=== PATIENT | female | born 1980 | race Caucasian/White ===

== ENCOUNTER → 2020-07-12 | Outpatient (CLI) | payer OTHER ==
--- NOTE | 2020-07-12 14:59 | Diagnostic Imaging Report ---
INDICATION: Routine screening. COMPARISON: No prior mammograms are available for comparison. This is a baseline study. TECHNIQUE: 2D and 3D bilateral screening mammography was performed with CAD. FINDINGS: Scattered fibroglandular densities are identified bilaterally. No mass or malignant appearing microcalcifications are seen. The axillae are unremarkable. IMPRESSION: No mammographic features suspicious for malignancy are identified. ACR BI-RADS Category 1: Negative. Result letter will be mailed to the patient. Note: At least 10% of breast cancer is not imaged by mammography. Dictated by: Dictated on workstation # [id number]
== END ==
LOC: RAD 09:30
PROVIDERS: ATTEND Obstetrics & Gynecology
DX: Z12.31 Encounter for screening mammogram for malignant neoplasm of breast (principal)
CPT/HCPCS: 77063; 77067

== ENCOUNTER 2021-09-08 20:53 | Emergency (ER) | payer OTHER ==
[~2021-09-08] VITALS: Ht 165 cm; Wt 120.0 kg
[2021-09-08] MEDS ORDERED: NS IV 1000 ML 1,000 ML IV STA (21:06)
--- NOTE | 2021-09-08 21:10 | ED Syncope ---
General Chief Complaint: Dizziness/Syncope Stated Complaint: SYNCOPE Source of Information: Patient, EMS History of Present Illness Date Seen by Provider: Sep 08, 2021 Time Seen by Provider: 20:53 Initial Comments 41-year-old female presenting by EMS from [facility] where she had been having supper and some drinks with friends. She had a near syncopal episode and almost passed out. She had low blood pressure for EMS when they arrived. They gave her IV fluids which helped her feel better. Her chest does not hurt. She denies abdominal pain. Her nose has some mild nasal congestion. She denies fever or chills. Timing/Prior Episodes: No Prior History Symptoms Prior to Episode: Blurred Vision, Confusion, Lightheadedness, Nausea Precipitating Factors: None Loss of Consciousness: No Loss of Consciousness Current Symptoms: Back to Normal; No Blurred Vision, No Chest Pain, No Diaphoresis, No Dizziness, No Headache, No Injury, No Lightheadedness, No Loss of Bladder Control, No Loss of Bowel Control, No Nausea, No Pale, No Shallow/Rapid Breathing, No Weak/Absent Pulse, No Weakness Allergies and Home Medications Allergies Coded Allergies: No Known Drug Allergies (Unverified , 09/08/21) Patient Home Medication List Home Medication List Reviewed: Yes Ciprofloxacin HCl (Ciprofloxacin HCl) 500 Mg Tablet, 500 MG PO BID Prescribed by: JAMILAH PERERA on 09/08/212223 Review of Systems Constitutional: No chills; diaphoresis; No fever EENTM: No ear discharge, No hearing loss, No ear pain, No vision loss Respiratory: no symptoms reported Cardiovascular: palpitations Gastrointestinal: no symptoms reported Genitourinary: no symptoms reported Musculoskeletal: no symptoms reported Skin: no symptoms reported, change in hair/nails Psychiatric/Neurological: No Symptoms Reported Past Bzhvqre-Ssekzw-Scyctg Hx Patient Social History Tobacco Use?: No Use of E-Cig and/or Vaping dev: No Substance use?: No Physical Exam Vital Signs Vital Signs - First Documented 09/08/21 20:55 Temp 36.2 Pulse 81 Resp 18 B/P (MAP) 132/46 (74) Pulse Ox 94 O2 Delivery Room Air Capillary Refill : Height, Weight, BMI Height: '" Weight: lbs. oz. kg; BMI Method: General Appearance: No Apparent Distress, WD/WN HEENT: PERRL/EOMI, Normal ENT Inspection, Pharynx Normal Neck: Full Range of Motion, Normal Inspection, Non Tender, Supple Cardiovascular: Regular Rate, Rhythm, Normal Peripheral Pulses Respiratory: Chest Non Tender, Lungs Clear, Normal Breath Sounds, No Accessory Muscle Use, No Respiratory Distress Gastrointestinal: Normal Bowel Sounds, No Pulsatile Mass, Non Tender, Soft Back: No CVA Tenderness Extremities: Normal Capillary Refill, Normal Inspection, No Pedal Edema Neurologic/Psychiatric: Alert, No Motor/Sensory Deficits Cranial Nerves: Normal Hearing, Normal Speech, PERRL Motor/Sensory: No Motor Deficit, No Sensory Deficit, No Pronator Drift Skin: Normal Color, Warm/Dry Progress/Results/Core Measures Results/Orders Lab Results Laboratory Tests Test 09/08/21 21:05 09/08/21 21:10 09/08/21 21:32 Range/Units White Blood Count 11.2 H 4.3-11.0 10^3/uL Red Blood Count 4.06 3.80-5.11 10^6/uL Hemoglobin 12.5 11.5-16.0 g/dL Hematocrit 37 35-52 % Mean Corpuscular Volume 92 80-99 fL Mean Corpuscular Hemoglobin 31 25-34 pg Mean Corpuscular Hemoglobin Concent 33 32-36 g/dL Red Cell Distribution Width 13.4 10.0-14.5 % Platelet Count 222 130-400 10^3/uL Mean Platelet Volume 12.0 9.0-12.2 fL Immature Granulocyte % (Auto) 0 % Neutrophils (%) (Auto) 49 42-75 % Lymphocytes (%) (Auto) 42 12-44 % Monocytes (%) (Auto) 5 0-12 % Eosinophils (%) (Auto) 4 0-10 % Basophils (%) (Auto) 1 0-10 % Neutrophils # (Auto) 5.4 1.8-7.8 10^3/uL Lymphocytes # (Auto) 4.7 H 1.0-4.0 10^3/uL Monocytes # (Auto) 0.5 0.0-1.0 10^3/uL Eosinophils # (Auto) 0.4 H 0.0-0.3 10^3/uL Basophils # (Auto) 0.1 0.0-0.1 10^3/uL Immature Granulocyte # (Auto) 0.0 0.0-0.1 10^3/uL Prothrombin Time 14.2 12.2-14.7 SEC INR Comment 1.1 0.8-1.4 Activated Partial Thromboplast Time 29 24-35 SEC Sodium Level 134 L 135-145 MMOL/L Potassium Level 3.7 3.6-5.0 MMOL/L Chloride Level 103 98-107 MMOL/L Carbon Dioxide Level 20 L 21-32 MMOL/L Anion Gap 11 5-14 MMOL/L Blood Urea Nitrogen 12 7-18 MG/DL Creatinine 0.90 0.60-1.30 MG/DL Estimat Glomerular Filtration Rate 81 BUN/Creatinine Ratio 13 Glucose Level 152 H 70-105 MG/DL Calcium Level 8.1 L 8.5-10.1 MG/DL Corrected Calcium 8.5 8.5-10.1 MG/DL Magnesium Level 2.1 1.6-2.4 MG/DL Total Bilirubin 0.3 0.1-1.0 MG/DL Aspartate Amino Transf (AST/SGOT) 11 5-34 U/L Alanine Aminotransferase (ALT/SGPT) 5 0-55 U/L Alkaline Phosphatase 50 40-136 U/L Myoglobin < 21.0 10.0-92.0 NG/ML Troponin I < 0.30 <0.30 NG/ML Pro-B-Type Natriuretic Peptide 57.3 <75.0 PG/ML Total Protein 6.3 L 6.4-8.2 GM/DL Albumin 3.5 3.2-4.5 GM/DL Serum Alcohol < 10 <10 MG/DL Influenza Type A Antigen NEGATIVE NEGATIVE Influenza Type B Antigen NEGATIVE NEGATIVE Urine Color YELLOW Urine Clarity CLEAR Urine pH 6.0 5-9 Urine Specific [place] 1.020 1.016-1.022 Urine Protein NEGATIVE NEGATIVE Urine Glucose (UA) NEGATIVE NEGATIVE Urine Ketones NEGATIVE NEGATIVE Urine Nitrite NEGATIVE NEGATIVE Urine Bilirubin NEGATIVE NEGATIVE Urine Urobilinogen 0.2 < = 1.0 MG/DL Urine Leukocyte Esterase 1+ H NEGATIVE Urine RBC (Auto) NEGATIVE NEGATIVE Urine RBC NONE /HPF Urine WBC 5-10 H /HPF Urine Squamous Epithelial Cells 10-25 H /HPF Urine Crystals NONE /LPF Urine Bacteria MODERATE H /HPF Urine Casts PRESENT /LPF Urine Hyaline Casts 5-10 H /LPF Urine Mucus LARGE H /LPF Urine Yeast FEW H /HPF Urine Culture Indicated YES My Orders Orders - JAMILAH PERERA MD Cbc With Automated Diff (09/08/21 21:06) Magnesium (09/08/21 21:06) Chest 1 View Ap/Pa Only (09/08/21 21:06) Ekg Tracing (09/08/21 21:06) Comprehensive Metabolic Panel (09/08/21 21:06) Myoglobin Serum (09/08/21 21:06) Protime With Inr (09/08/21 21:06) Partial Thromboplastin Time (09/08/21 21:06) O2 (09/08/21 21:06) Monitor-Rhythm Ecg Trace Only (09/08/21 21:06) Ed Iv/Invasive Line Start (09/08/21 21:06) Troponin I Fs (09/08/21 21:06) Probnp Fs (09/08/21 21:06) Ua Culture If Indicated (09/08/21 21:06) Alcohol (09/08/21 21:06) Coronavirus Sars-Cov-2 So 2019 (09/08/21 21:06) Influenza A & B Antigens (09/08/21 21:06) Orthostatic Vital Signs (Adult (09/08/21 21:06) Ns Iv 1000 Ml (Sodium Chloride 0.9%) (09/08/21 21:06) Urine Culture (09/08/21 21:32) Ceftriaxone 1 Gm Pre-Mix (Rocephin 1 Gm (09/08/21 22:20) Vital Signs/I&O 09/08/21 09/08/21 09/08/21 20:55 21:31 22:47 Temp 36.2 Pulse 81 77 78 79 73 Resp 18 15 B/P (MAP) 132/46 (74) 102/51 (68) 101/48 107/56 (73) 97/53 (68) Pulse Ox 94 98 O2 Delivery Room Air Room Air 09/09/21 00:00 Intake Total 300 ml Balance 300 ml Progress Progress Note #1: Progress Note Obtain basic labs and electrocardiogram. Monitor on cardiac engine monitor. The initial electrocardiogram does not show acute ST elevation or acute process. Progress Note #2: Progress Note Labs do not show any acute significant abnormality to account for her near syncope. Her urinalysis did show some dehydration and UTI. Will treat with antibiotic and continue fluids. Patient states that she is feeling better. She had orthostatics done and her blood pressure and heart rate did not fluctuate significantly. With patient feeling better will treat with antibiotics and counseled on follow-up and return precautions. Initial ECG Impression Date: Sep 08, 2021 Initial ECG Impression Time: 21:01 Initial ECG Rate: 75 Initial ECG Rhythm: Normal Sinus Initial ECG Comparisson: No Previous ECG Available Comment Normal sinus rhythm with a heart rate of [address] elevation. CA interval 161 ms. QT interval 406 ms with a QTc interval 454 ms. There is no prior tracing available for comparison. Departure Impression Primary Impression: Cystitis without hematuria Additional Impressions: Dehydration Syncope, near Person under investigation for COVID-19 Disposition: 01 HOME, SELF-CARE Condition: Improved Departure-Patient Inst. Decision time for Depature: 22:21 Referrals: [facility] [phone] call for follow up for continued problems Patient Instructions: Fainting, Adult ED, Urinary Tract Infection, Adult ED, Dehydration, Adult ED, COVID-19 ED Add. Discharge Instructions: Stay well-hydrated and drink plenty fluids. Finish the course of antibiotics to treat for urine infection. Follow-up through the clinic for continued concerns. You should isolate and quarantine until you have the results of the Covid swab. You will get a call within the next 24 to 48 hours with the results. All discharge instructions reviewed with patient and/or family. Voiced understanding. Scripts Ciprofloxacin HCl (Ciprofloxacin HCl) 500 Mg Tablet 500 MG PO BID for UTI for 7 Days, #14 TAB 0 Refills Prov: JAMILAH PERERA MD 09/08/21 JAMILAH PERERA MD Sep 08, 2021 21:10
[2021-09-08 21:13] LABS: BASOPHILS # (AUTO) 0.1 10^3/uL (0.0-0.1); BASOPHILS % (AUTO) 1 % (0-10); EOSINOPHILS # (AUTO) 0.4 10^3/uL (0.0-0.3); EOSINOPHILS % (AUTO) 4 % (0-10); HEMATOCRIT 37 % (35-52); HEMOGLOBIN 12.5 g/dL (11.5-16.0); LYMPHOCYTES # (AUTO) 4.7 10^3/uL (1.0-4.0); LYMPHOCYTES % (AUTO) 42 % (12-44); MEAN CORPUSCULAR HEMOGLOBIN 31 pg (25-34); MEAN CORPUSCULAR HGB CONC 33 g/dL (32-36); MEAN CORPUSCULAR VOLUME 92 fL (80-99); MONOCYTES # (AUTO) 0.5 10^3/uL (0.0-1.0); MONOCYTES % (AUTO) 5 % (0-12); NEUTROPHILS # (AUTO) 5.4 10^3/uL (1.8-7.8); NEUTROPHILS % (AUTO) 49 % (42-75); PLATELET COUNT 222 10^3/uL (130-400); WHITE BLOOD COUNT 11.2 10^3/uL (4.3-11.0)
[2021-09-08 21:22] LABS: INR 1.1 (0.8-1.4); PROTHROMBIN TIME PATIENT 14.2 SEC (12.2-14.7)
[2021-09-08 21:31] VITALS: BP_SYST 102; BP_SYST 107; BP_SYST 97; BP_DIAS 51; BP_DIAS 53; BP_DIAS 56
--- NOTE | 2021-09-08 21:33 | Diagnostic Imaging Report ---
PATIENT HISTORY: Syncope. TECHNIQUE: Single frontal view of the chest. COMPARISON: None. FINDINGS: The lung volumes are normal. No focal consolidation is seen. No large pleural effusion or pneumothorax is seen. The cardiomediastinal silhouette is normal in size and contour. No acute osseous abnormality is seen. IMPRESSION: No acute pulmonary abnormality seen. Dictated by: Dictated on workstation # [id number]
[2021-09-08 21:36] LABS: ALANINE AMINOTRANSFERASE 5 U/L (0-55); ALBUMIN 3.5 GM/DL (3.2-4.5); ALKALINE PHOSPHATASE 50 U/L (40-136); BILIRUBIN,TOTAL 0.3 MG/DL (0.1-1.0); BUN/CREATININE RATIO 13; CALCIUM 8.1 MG/DL (8.5-10.1); CARBON DIOXIDE 20 MMOL/L (21-32); CHLORIDE 103 MMOL/L (98-107); GFR ESTIMATED 81; GLUCOSE 152 MG/DL (70-105); MAGNESIUM 2.1 MG/DL (1.6-2.4); POTASSIUM 3.7 MMOL/L (3.6-5.0); SODIUM 134 MMOL/L (135-145); TOTAL PROTEIN 6.3 GM/DL (6.4-8.2)
[2021-09-08 21:39] LABS: BILIRUBIN,URINE NEGATIVE (NEGATIVE); CLARITY,URINE CLEAR; COLOR,URINE YELLOW; GLUCOSE, URINE (UA) NEGATIVE (NEGATIVE); KETONES,URINE NEGATIVE (NEGATIVE); LEUKOCYTE ESTERASE ,URINE 1+ (NEGATIVE); NITRITE,URINE NEGATIVE (NEGATIVE); PROTEIN,URINE NEGATIVE (NEGATIVE)
[2021-09-08 21:45] LABS: BACTERIA,URINE MODERATE /HPF; YEAST,URINE FEW /HPF
[2021-09-08] MEDS ORDERED: cefTRIAXone 1 GM PRE-MIX 50 ML IV STA (22:20)
[2021-09-08] MEDS ORDERED: CIPR500T5 PO (22:24)
[2021-09-08 22:47] VITALS: BP 101/48
== END 2021-09-08 22:47 | disposition home or self-care (01) ==
LOC: EDUNIT# 20:53 → ER FS 20:54
DX: N30.90 Cystitis, unspecified without hematuria (principal); E86.0 Dehydration; R55 Syncope and collapse; Z20.822 Contact with and (suspected) exposure to COVID-19
CPT/HCPCS: 36415; 71045; 80053; 81000; 83735; 83874; 83880; 84484; 85025; 85610; 85730; 87088; 87636; 87804; 93041; 99284; G0480; 80320; 87635

== ENCOUNTER → 2022-08-24 | Outpatient (CLI) | payer OTHER ==
[~2022-08-24] MED LIST: CIPR500T5 PO
--- NOTE | 2022-08-24 11:13 | Diagnostic Imaging Report ---
Indication: Routine screening. Comparison is made with prior mammogram from 07/12/2020. 2-D and 3-D bilateral screening mammography was performed with CAD. Scattered fibroglandular densities are identified bilaterally. The parenchymal pattern is stable. No mass or malignant-appearing microcalcifications are seen. Axillae are unremarkable. IMPRESSION: BI-RADS Category 1 No mammographic features suspicious for malignancy are identified. ACR BI-RADS Category 1: Negative. Result letter will be mailed to the patient. Note: At least 10% of breast cancer is not imaged by mammography. Dictated by: Dictated on workstation # [id number]
== END ==
LOC: RAD 08:00
PROVIDERS: ATTEND Surgery
DX: Z12.31 Encounter for screening mammogram for malignant neoplasm of breast (principal)
CPT/HCPCS: 77063; 77067